=== PATIENT | female | born 1965 | race Caucasian/White ===

== ENCOUNTER 2017-06-19 05:42 | Day surgery (SDC) | payer BC ==
[~2017-06-19] VITALS: Ht 160 cm; Wt 72.6 kg
[~2017-06-19 05:42] MED LIST: ALEVE220 MG PO; BENADRYL ALLERG25 MG PO; EFFEXOR XR75 MG PO; FLEXERIL5 MG PO; LO-DOSE ASPIRIN81 M1 PO; MELATONIN5 MG SL; PRILOSEC OTC20 MG PO; TUMERSAID TABL1 EACH PO; TYLENOL EXTRA500 MG PO
[2017-06-19 06:14] VITALS: BP 181/84
[2017-06-19] MEDS ORDERED: MOTRIN800 MG PO (09:57)
[2017-06-19] MEDS ORDERED: PERCOCET 5/31 TABLET PO (09:57)
[2017-06-19 10:30] VITALS: BP 129/77
[2017-06-19 11:33] VITALS: BP 145/79
== END 2017-06-19 12:05 | disposition home or self-care (01) ==
LOC: SDC 05:42
DX: N94.6 Dysmenorrhea, unspecified (principal); Q51.3 Bicornate uterus; N80.0 Endometriosis of uterus; N72 Inflammatory disease of cervix uteri; N83.202 Unspecified ovarian cyst, left side; Z98.51 Tubal ligation status; Z80.41 Family history of malignant neoplasm of ovary; Z80.3 Family history of malignant neoplasm of breast; Z82.49 Family history of ischemic heart disease and other diseases of the circulatory system; Z83.3 Family history of diabetes mellitus
CPT/HCPCS: 88307; J0131; J0360; J0690; J1100; J1170; J1885; J2001; J2405; J2710; J2795; J3010; J3475; S0020